=== PATIENT | female | born 1985 | race Caucasian/White ===

== ENCOUNTER 2018-01-16 05:07 | Emergency (ER) | payer OTHER ==
--- NOTE | 2018-01-16 05:39 | EDPHYS ---
Physician Documentation [facility] Name: Fela Martin Age: 32 yrs Sex: Female : 1985 Arrival Date: 01/16/2018 Time: 05:11 Bed 8 Private MD: ED Physician Perez Arnett HPI: 01/16 05:34 This 32 yrs old Female presents to ER via Ambulatory with complaints of Jaw rn Pain. 05:34 The patient presents with pain. The problem is located in the right mandible. Onset: rn The symptoms/episode began/occurred 1.5 month(s) ago. Duration: The symptoms are intermittent. Severity of symptoms: At their worst the symptoms were moderate, in the emergency department the symptoms are unchanged. The patient has not experienced similar symptoms in the past. Reports had multiple wisdom teeth extracted 2 months ago, has been having right mandible/jaw/cheek pain for 1.5 months, no fever, reports tylenol doesn't help, has seen both the surgeon and a dentist, both state everything looks ok, normal pano xrays. No neck pain/swelling, no difficulty swallowing. . [employer]ATIONS SUPPORT [employer]ESSIONALS: 05:39 unknown jd3 Historical: - Allergies: 05:23 No Known Allergies; aa1 - Home Meds: 05:23 Paxil Oral [Active]; Adderall XR Oral [Active]; aa1 - PMHx: 05:23 Endometrosis; Anxiety; Depression; ADD/ADHD; aa1 - PSHx: 05:23 None; aa1 - Immunization history:: Flu vaccine is not up to date. - Social history:: Smoking status: Patient uses tobacco products, smokes one-half pack cigarettes per day. - Family history:: not pertinent. - Hospitalizations: : No recent hospitalization is reported. ROS: 05:34 Constitutional: Negative for fever, chills, and weight loss, Eyes: Negative for injury, rn pain, redness, and discharge, ENT: + jaw pain Neck: Negative for injury, pain, and swelling, Neuro: Negative for headache, weakness, numbness, tingling, and seizure. Exam: 05:34 Constitutional: This is a well developed, well nourished patient who is awake, alert, rn and in no acute distress. Head/Face: Normocephalic, atraumatic. Eyes: Pupils equal round and reactive to light, extra-ocular motions intact. Lids and lashes normal. Conjunctiva and sclera are non-icteric and not injected. Cornea within normal limits. Periorbital areas with no swelling, redness, or edema. ENT: Nares patent. No nasal discharge, no septal abnormalities noted. Tympanic membranes are normal and external auditory canals are clear. Oropharynx with no redness, swelling, or masses, exudates, or evidence of obstruction, uvula midline. Mucous membranes moist. No oral lesions, no evidence of oral infection, no stridor, no masses. Neck: Trachea midline, no thyromegaly or masses palpated, and no cervical lymphadenopathy. Supple, full range of motion without nuchal rigidity, or vertebral point tenderness. No Meningismus. Neuro: Awake and alert, GCS 15, oriented to person, place, time, and situation. Cranial nerves II-XII grossly intact. Motor strength 5/5 in all extremities. Sensory grossly intact. Cerebellar exam normal. Normal gait. Vital Signs: 05:23 BP 124 / 87; Pulse 89; Resp 16; Temp 98.6; Pulse Ox 100% on R/A; Weight 56.25 kg; aa1 Height 5 ft. 4 in. (162.56 cm); Pain 9/10; 05:23 Body Mass Index 21.28 (56.25 kg, 162.56 cm) aa1 MDM: 05:18 Patient medically screened. rn 05:34 Differential diagnosis: dental caries, gingivitis, nerve damage, TMJ dysfunction, pain rn syndrome. Data reviewed: vital signs, nurses notes, and as a result, I will discharge patient. Counseling: I had a detailed discussion with the patient and/or guardian regarding: the need for outpatient follow up, to return to the emergency department if symptoms worsen or persist or if there are any questions or concerns that arise at home. Administered Medications: No medications were administered Disposition: 01/16/18 05:38 Discharged to Home as Medical Screen. Impression: Jaw pain. - Condition is Stable. - Discharge Instructions: Pain Without a Known Cause. - Medication Reconciliation Form, Thank You Letter, Antibiotic Education, Prescription Opioid Use form. - Follow up: Private Physician; When: As needed; Reason: Recheck today's complaints, Re-evaluation by your physician. - Problem is an ongoing problem. - Symptoms are unchanged. Signatures: Noemy Bellamy, RN RN aa1 Perez Arnett MD MD rn Harsh Balbuena RN RN jd3 Corrections: (The following items were deleted from the chart) 05:39 05:38 01/16/2018 05:38 Discharged to Home as Medical Screen. Impression: Jaw pain. jd3 Condition is Stable. Forms are Medication Reconciliation Form, Thank You Letter, Antibiotic Education, Prescription Opioid Use. Follow up: Private Physician; When: As needed; Reason: Recheck today's complaints, Re-evaluation by your physician. Problem is an ongoing problem. Symptoms are unchanged. rn
--- NOTE | 2018-01-16 05:39 | ER ---
Nurse's Notes [facility] Name: Fela Martin Age: 32 yrs Sex: Female : 1985 Arrival Date: 01/16/2018 Time: 05:11 Bed 8 Private MD: Diagnosis: Jaw pain Presentation: 01/16 05:21 Presenting complaint: Patient states: R jaw pain since having wisdom teeth removed 2 aa1 months ago. States she followed up with surgeon regarding pain and was told nothing is wrong but reports she is still having pain. Transition of care: patient was not received from another setting of care. Onset of symptoms was November 12, 2017. Initial Sepsis Screen: Does the patient meet any 2 criteria? No. Patient's initial sepsis screen is negative. Does the patient have a suspected source of infection? No. Patient's initial sepsis screen is negative. Care prior to arrival: None. 05:21 Method Of Arrival: Ambulatory aa1 05:21 Acuity: RAUL 4 aa1 [employer]LLMONG[employer] WORKER: 05:39 unknown jd3 Historical: - Allergies: 05:23 No Known Allergies; aa1 - Home Meds: 05:23 Paxil Oral [Active]; Adderall XR Oral [Active]; aa1 - PMHx: 05:23 Endometrosis; Anxiety; Depression; ADD/ADHD; aa1 - PSHx: 05:23 None; aa1 - Immunization history:: Flu vaccine is not up to date. - Social history:: Smoking status: Patient uses tobacco products, smokes one-half pack cigarettes per day. - Family history:: not pertinent. - Hospitalizations: : No recent hospitalization is reported. Screenin:36 Abuse screen: Denies threats or abuse. Nutritional screening: No deficits noted. jd3 Tuberculosis screening: No symptoms or risk factors identified. Fall Risk None identified. Assessment: 05:34 General: Appears in no apparent distress. Behavior is calm, cooperative, appropriate jd3 for age. Pain: Complains of pain in face. Neuro: Level of Consciousness is awake, alert, obeys commands, Oriented to person, place, time, situation. Cardiovascular: Patient's skin is warm and dry. Respiratory: Airway is patent Respiratory effort is even, unlabored, Respiratory pattern is regular, symmetrical. GI: No signs and/or symptoms were reported involving the gastrointestinal system. : No signs and/or symptoms were reported regarding the genitourinary system. EENT: No signs and/or symptoms were reported regarding the EENT system. Derm: Skin is intact, Skin is dry, Skin is normal, Skin temperature is warm. Musculoskeletal: Circulation, motion, and sensation intact. Range of motion: intact in all extremities. Vital Signs: 05:23 BP 124 / 87; Pulse 89; Resp 16; Temp 98.6; Pulse Ox 100% on R/A; Weight 56.25 kg; aa1 Height 5 ft. 4 in. (162.56 cm); Pain 9/10; 05:23 Body Mass Index 21.28 (56.25 kg, 162.56 cm) aa1 ED Course: 05:11 Patient arrived in ED. al2 05:18 Perez Arnett MD is Attending Physician. rn 05:22 Triage completed. aa1 05:23 Arm band placed on right wrist. Patient placed in an exam room, on a stretcher. aa1 05:36 Patient has correct armband on for positive identification. Placed in gown. jd3 05:36 No provider procedures requiring assistance completed. Patient did not have IV access jd3 during this emergency room visit. 05:38 Harsh Balbuena RN is Primary Nurse. jd3 Administered Medications: No medications were administered Outcome: 05:36 Medical screen evaluation completed per provider. jd3 05:36 Condition: stable 05:36 Discharge instructions given to patient, Instructed on follow up and referral plans. Demonstrated understanding of follow-up care. 05:38 Discharge ordered by . rn 05:39 Patient left the ED. jd3 Signatures: Noemy Bellamy RN RN aa1 Perez Arnett MD MD rn Davies, Jonathon, RN RN Ambika Castro al
== END 2018-01-16 05:39 | disposition home or self-care (01) ==
LOC: ER 05:07
DX: R68.84 Jaw pain (principal); F41.8 Other specified anxiety disorders; F98.8 Other specified behavioral and emotional disorders with onset usually occurring in childhood and adolescence
CPT/HCPCS: 99281

== ENCOUNTER 2018-09-28 08:51 | Emergency (ER) | payer OTHER, SELFPAY ==
--- OUTSIDE RECORDS SUMMARY | 2018-09-28 08:52 | XMS REPORT ---
:1985 [facility] Address [address] [place] [address] Dr. Monk [address] [place] [id number] Care Team Providers Name Role Phone Unavailable Unavailable Unavailable Problems This patient has no known problems. Allergies, Adverse Reactions, Alerts This patient has no known allergies or adverse reactions. Medications This patient has no known medications.
[2018-09-28] MEDS ORDERED: KETOROLAC 30 MG/ML INJ ONE (09:38)
--- NOTE | 2018-09-28 09:39 | EDPHYS ---
Physician Documentation [facility] Name: Fela Martin Age: 33 yrs Sex: Female : 1985 Arrival Date: 09/28/2018 Time: 08:55 Bed 7 Private MD: ED Physician Mg Aranda HPI: 09/28 09:41 This 33 yrs old Female presents to ER via Ambulatory with complaints of Pain tw4 All Over. 09:41 "pain all over" for months. Onset: The symptoms/episode began/occurred 3 month(s) ago. tw4 Severity of symptoms: At their worst the symptoms were moderate in the emergency department the symptoms are unchanged. The patient has not experienced similar symptoms in the past. Historical: - Allergies: 09:04 No Known Allergies; la1 - PMHx: 09:04 ADD/ADHD; Anxiety; Depression; Endometrosis; Hypertension; la1 - Immunization history:: Adult Immunizations up to date. - Social history:: Smoking status: Patient/guardian denies using tobacco. - Ebola Screening: : No symptoms or risks identified at this time. ROS: 09:41 Constitutional: Negative for fever, chills, and weight loss, Eyes: Negative for injury, tw4 pain, redness, and discharge, Cardiovascular: Negative for chest pain, palpitations, and edema, Respiratory: Negative for shortness of breath, cough, wheezing, and pleuritic chest pain, Abdomen/GI: Negative for abdominal pain, nausea, vomiting, diarrhea, and constipation. 09:41 MS/extremity: Positive for pain, of the right arm, left arm, right leg and left leg. Exam: 09:41 Constitutional: This is a well developed, well nourished patient who is awake, alert, tw4 and in no acute distress. Head/Face: Normocephalic, atraumatic. Chest/axilla: Normal chest wall appearance and motion. Nontender with no deformity. No lesions are appreciated. Cardiovascular: Regular rate and rhythm with a normal S1 and S2. No gallops, murmurs, or rubs. Normal PMI, no JVD. No pulse deficits. Respiratory: Lungs have equal breath sounds bilaterally, clear to auscultation and percussion. No rales, rhonchi or wheezes noted. No increased work of breathing, no retractions or nasal flaring. Abdomen/GI: Soft, non-tender, with normal bowel sounds. No distension or tympany. No guarding or rebound. No evidence of tenderness throughout. 09:41 Musculoskeletal/extremity: Extremities: noted in the right jaw, right arm, left arm, right leg and left leg: ROM: no acute changes, Circulation is intact in all extremities. Sensation intact. Vital Signs: 09:04 BP 110 / 80; Pulse 83; Resp 18; Temp 98.8(TE); Pulse Ox 100% on R/A; Weight 58.97 kg; la1 Height 5 ft. 5 in. (165.10 cm); 09:04 Body Mass Index 21.63 (58.97 kg, 165.10 cm) la1 MDM: 09:07 Patient medically screened. tw4 09:41 Data reviewed: vital signs, nurses notes. Data interpreted: Pulse oximetry: tw4 Interpretation: normal. Counseling: I had a detailed discussion with the patient and/or guardian regarding: the historical points, exam findings, and any diagnostic results supporting the discharge/admit diagnosis. Special discussion: I discussed with the patient/guardian in detail that at this point there is no indication for admission to the hospital. It is understood, however, that if the symptoms persist or worsen the patient needs to return immediately for re-evaluation. 11:43 Differential Diagnosis flu, nonspecific viral illness. Medication response: Toradol tw4 partially relieved the patient's pain. Response to treatment: the patient's symptoms have markedly improved after treatment, and as a result, I will discharge patient. Administered Medications: 09:36 Drug: TORadol 60 mg Route: IM; Site: right vastus lateralis; la1 09:54 Follow up: Response: No adverse reaction la1 Disposition: 09/28/18 09:39 Discharged to Home. Impression: Arthralgia of temporomandibular joint, Myalgia. - Condition is Stable. - Discharge Instructions: Musculoskeletal Pain, Muscle Pain, Adult, Pain Without a Known Cause, Temporomandibular Joint Syndrome, Joint Pain, [id number]. - Prescriptions for Tramadol 50 mg Oral Tablet - take 1 tablet by ORAL route every 8 hours as needed; 12 tablet. - Medication Reconciliation Form, Thank You Letter, Antibiotic Education, Prescription Opioid Use form. - Follow up: Private Physician; When: Upon discharge from the Emergency Department; Reason: Recheck today's complaints, Continuance of care. - Problem is new. - Symptoms have improved. Signatures: Edward Palma RN RN la1 Mg Aranda MD MD tw4 Corrections: (The following items were deleted from the chart) 09:55 09:39 09/28/2018 09:39 Discharged to Home. Impression: Arthralgia of temporomandibular la1 joint; Myalgia. Condition is Stable. Forms are Medication Reconciliation Form, Thank You Letter, Antibiotic Education, Prescription Opioid Use. Follow up: Private Physician; When: Upon discharge from the Emergency Department; Reason: Recheck today's complaints, Continuance of care. Problem is new. Symptoms have improved. tw4
--- NOTE | 2018-09-28 09:39 | ER ---
Nurse's Notes [facility] Name: Fela Martin Age: 33 yrs Sex: Female : 1985 Arrival Date: 09/28/2018 Time: 08:55 Bed 7 Private MD: Diagnosis: Arthralgia of temporomandibular joint;Myalgia Presentation: 09/28 09:00 Presenting complaint: Patient states: I have had pain for the last 8 months, worse for la1 the last 3 months. Was seen at [facility] a few weeks ago for the same thing, sent to ENT, ENT stated I needed to follow up with neurology and to get an MRI of my nerves. Pt reports pain in right shoulder, jaw, and cant feel 2 on my fingers and a couple of my toes. It feels like my body is split in half. Transition of care: patient was not received from another setting of care. Onset of symptoms was September 28, 2018. Risk Assessment: Do you want to hurt yourself or someone else? Patient reports no desire to harm self or others. Initial Sepsis Screen: Does the patient meet any 2 criteria? No. Patient's initial sepsis screen is negative. Does the patient have a suspected source of infection? No. Patient's initial sepsis screen is negative. Care prior to arrival: None. 09:00 Method Of Arrival: Ambulatory la1 09:00 Acuity: RAUL 3 la1 Historical: - Allergies: 09:04 No Known Allergies; la1 - PMHx: 09:04 ADD/ADHD; Anxiety; Depression; Endometrosis; Hypertension; la1 - Immunization history:: Adult Immunizations up to date. - Social history:: Smoking status: Patient/guardian denies using tobacco. - Ebola Screening: : No symptoms or risks identified at this time. Screenin:13 Abuse screen: Denies threats or abuse. Nutritional screening: No deficits noted. la1 Tuberculosis screening: No symptoms or risk factors identified. Fall Risk None identified. Assessment: 09:12 General: Appears in no apparent distress. Behavior is calm, cooperative. Pain: la1 Complains of pain in right hand, right foot, right arm, right leg and neck. Neuro: Level of Consciousness is awake, alert, obeys commands, Oriented to person, place, time, situation, Telesales Representative are equal bilaterally Moves all extremities. Full function Gait is steady, Speech is normal, Facial symmetry appears normal, Pupils are PERRLA, Intact. Cardiovascular: Capillary refill < 3 seconds Patient's skin is warm and dry. Respiratory: Airway is patent Respiratory effort is even, unlabored, Respiratory pattern is regular, symmetrical, Breath sounds are clear bilaterally. GI: No signs and/or symptoms were reported involving the gastrointestinal system. : No signs and/or symptoms were reported regarding the genitourinary system. Musculoskeletal: Circulation, motion, and sensation intact. Capillary refill < 3 seconds, is brisk, in bilateral fingers. Range of motion: intact in all extremities. Vital Signs: 09:04 BP 110 / 80; Pulse 83; Resp 18; Temp 98.8(TE); Pulse Ox 100% on R/A; Weight 58.97 kg; la1 Height 5 ft. 5 in. (165.10 cm); 09:04 Body Mass Index 21.63 (58.97 kg, 165.10 cm) la1 ED Course: 08:55 Patient arrived in ED. mr 09:03 Triage completed. la1 09:04 Arm band placed on right wrist. la1 09:07 Mg Aranda MD is Attending Physician. tw4 09:12 Edward Palma RN is Primary Nurse. la1 09:13 Call light in reach. Side rails up X 1. la1 09:54 No provider procedures requiring assistance completed. Patient did not have IV access la1 during this emergency room visit. Administered Medications: 09:36 Drug: TORadol 60 mg Route: IM; Site: right vastus lateralis; la1 09:54 Follow up: Response: No adverse reaction la1 Outcome: 09:39 Discharge ordered by . tw4 09:54 Discharged to home ambulatory. la1 09:54 Condition: stable 09:54 Discharge instructions given to patient, Instructed on discharge instructions, follow up and referral plans. medication usage, Demonstrated understanding of instructions, follow-up care, medications, Prescriptions given X 1. 09:55 Patient left the ED. la1 Signatures: Syed Ruth sharp Edward Palma, RN RN la1 Mg Aranda MD MD tw4
== END 2018-09-28 09:55 | disposition home or self-care (01) ==
LOC: ER 08:51
DX: M26.629 Arthralgia of temporomandibular joint, unspecified side (principal); I10 Essential (primary) hypertension

== ENCOUNTER 2018-10-11 22:31 | Emergency (ER) | payer SELFPAY ==
--- OUTSIDE RECORDS SUMMARY | 2018-10-11 22:34 | XMS REPORT | Continuity of Care Document ---
:1985 Author Organization Interface Problems Problem Status Onset Date Classification Date Comments Source Reported Medications Medication Details Route Status Patient Ordering Order Source Instructions Provider Date Allergies, Adverse Reactions, Alerts Substance Category Reaction Severity Reaction Status Date Comments Source type Reported Immunizations Immunization Date Given Site Status Last Updated Comments Source Results Order Results Value Reference Date Interpretation Comments Source Name Range Vital Signs Vital Sign Value Date Comments Source Encounters Location Location Encounter Encounter Reason Attending ADM DC Status Source Details Type Number For Provider Date Date Visit Outpatient [id number] JENNIE 10/08 [facility] [id number] JENNIE 11/05 [place] [id number] Dom Procedures Procedure Code Date Perfomer Comments Source
--- OUTSIDE RECORDS SUMMARY | 2018-10-11 22:34 | XMS REPORT ---
:1985 Author Organization [facility] Address [address] [place] [address] Dr. Monk [address] [place] [id number] Care Team Providers Name Role Phone Unavailable Unavailable Unavailable Problems This patient has no known problems. Allergies, Adverse Reactions, Alerts This patient has no known allergies or adverse reactions. Medications This patient has no known medications.
[2018-10-11 23:22] LABS: Absolute Lymphocytes (CBC) 5.1 K/uL (0.7-4.9); Absolute Monocytes 0.6 K/uL (0.1-1.3); Absolute Neutrophil 2.6 K/uL (1.8-8.0); Basophils % 0.3 % (0-1.3); Eosinophils % 3.2 % (0-4.4); Hematocrit 36.5 % (36.0-45.0); Monocytes % 7.5 % (3.3-12.3); RBC Red Blood Cell Count 4.26 M/uL (3.86-4.86)
[2018-10-11 23:42] LABS: ALT/SGPT 16 U/L (12-78); AST/SGOT 4 U/L (15-37); Alkaline Phosphatase 74 U/L (45-117); BUN Blood Urea Nitrogen 9 mg/dL (7-18); Bicarbonate 26 mmol/L (21-32); Bilirubin Direct 0.1 mg/dL (0-0.2); Bilirubin Total 0.3 mg/dL (0.2-1.0); Glucose Level 95 mg/dL (74-106); Lipase 153 U/L (73-393); Potassium 3.6 mmol/L (3.5-5.1); Protein, Total 7.2 g/dL (6.4-8.2); Sodium Level 139 mmol/L (136-145)
[2018-10-11] MEDS ORDERED: KETOROLAC 30 MG/ML INJ ONE (23:45)
--- NOTE | 2018-10-12 02:27 | ER ---
Nurse's Notes [facility] Name: Fela Martin Age: 33 yrs Sex: Female : 1985 Arrival Date: 10/11/2018 Time: 22:33 Bed 7 Private MD: Raudel Beck Diagnosis: Neuralgia and neuritis, unspecified;Chest pain, unspecified-Chest wall pain Presentation: 10/11 22:50 Presenting complaint: Patient states: Pt reports pain to right upper quadrant that ea worsens when she takes a deep breath, reports pain started about 4 hours ago and has worsened since. Transition of care: patient was not received from another setting of care. Onset of symptoms was October 11, 2018. Risk Assessment: Do you want to hurt yourself or someone else? Patient reports no desire to harm self or others. Initial Sepsis Screen: Does the patient meet any 2 criteria? No. Patient's initial sepsis screen is negative. Does the patient have a suspected source of infection? No. Patient's initial sepsis screen is negative. Care prior to arrival: None. 22:50 Acuity: RAUL 3 ea 22:50 Method Of Arrival: Wheelchair ea Triage Assessment: 22:50 General: Appears uncomfortable, Behavior is calm, cooperative, appropriate for age. ea Pain: Complains of pain in abdomen and right upper quadrant. Neuro: Level of Consciousness is awake, alert, obeys commands, Oriented to person, place, time, situation. Respiratory: Reports pain with respiration Airway is patent Respiratory effort is even, unlabored, Respiratory pattern is regular, symmetrical, Onset: The symptoms/episode began/occurred today, the patient reports symptoms have resolved. Derm: Skin is pink, warm \T\ dry. Historical: - Allergies: 23:05 No Known Allergies; ea - Home Meds: 23:05 Paxil Oral [Active]; Adderall XR Oral [Active]; ea - PMHx: 23:05 ADD/ADHD; Anxiety; Depression; Endometrosis; Hypertension; ea - Immunization history:: Adult Immunizations not up to date. - Social history:: Smoking status: Patient uses tobacco products, denies chronic smoking, but will smoke occasionally. - Ebola Screening: : No symptoms or risks identified at this time. Screenin:52 Abuse screen: Denies threats or abuse. Nutritional screening: No deficits noted. ea Tuberculosis screening: No symptoms or risk factors identified. Fall Risk None identified. Assessment: 22:50 General: Appears uncomfortable, Behavior is appropriate for age. Pain: Complains of ea pain in right upper quadrant Pain currently is 9 out of 10 on a pain scale. Quality of pain is described as aching, Aggravated by pain with inspiration. Neuro: Level of Consciousness is awake, alert, obeys commands, Oriented to person, place, time, situation. Cardiovascular: Patient's skin is warm and dry. Respiratory: Airway is patent Respiratory effort is even, unlabored, Respiratory pattern is regular, symmetrical, Breath sounds are clear bilaterally. GI: No signs and/or symptoms were reported involving the gastrointestinal system. Derm: Skin is pink, warm \T\ dry. 23:55 Reassessment: Patient and/or family updated on plan of care and expected duration. Pain ea level reassessed. Patient is alert, oriented x 3, equal unlabored respirations, skin warm/dry/pink. Pt reports pain level is decreased. 10/12 00:30 Reassessment: Patient and/or family updated on plan of care and expected duration. Pain ea level reassessed. Patient is alert, oriented x 3, equal unlabored respirations, skin warm/dry/pink. 01:34 Reassessment: Patient and/or family updated on plan of care and expected duration. Pain ea level reassessed. Patient is alert, oriented x 3, equal unlabored respirations, skin warm/dry/pink. Provider at bedside updating pt on plan of care. 02:07 Reassessment: Patient and/or family updated on plan of care and expected duration. Pain ea level reassessed. Patient is alert, oriented x 3, equal unlabored respirations, skin warm/dry/pink. Pt returned from CT. 02:39 Reassessment: Patient and/or family updated on plan of care and expected duration. Pain ea level reassessed. Patient is alert, oriented x 3, equal unlabored respirations, skin warm/dry/pink. Discharge instruction given to patient, verbalized the understanding of instruction. Vital Signs: 10/11 22:50 BP 146 / 88; Pulse 89; Resp 18; Temp 98(O); Pulse Ox 99% on R/A; ea 10/12 00:00 BP 120 / 74; Pulse 78; Resp 18; Pulse Ox 98% on R/A; ea 02:15 BP 121 / 93; Pulse 70; Resp 18; Pulse Ox 99% ; ea ED Course: 10/11 22:33 Patient arrived in ED. am2 22:34 Raudel Beck MD is Private Physician. am2 22:44 Connor Craig PA is PHCP. jr8 22:44 Arian Rodriguez MD is Attending Physician. jr8 22:47 Arm band placed on left wrist. Patient placed in an exam room, on a stretcher, on pulse ea oximetry. 22:50 Lisa Mariee, RN is Primary Nurse. ea 22:50 Patient has correct armband on for positive identification. Bed in low position. Call ea light in reach. 23:12 Triage completed. ea 23:17 Inserted saline lock: 22 gauge in right antecubital area, using aseptic technique. ea Blood collected. 10/12 00:52 IV discontinued, intact, bleeding controlled, No redness/swelling at site. Pressure ea dressing applied, 22G to RAC discontinued due to pain to site. Inserted saline lock: 22 gauge in left forearm, using aseptic technique. 01:[address] via wheelchair. kw1 01:57 CT Abd/Pelvis - W/Contrast In Process Unspecified. EDMS 02:42 No provider procedures requiring assistance completed. IV discontinued, intact, ea bleeding controlled, No redness/swelling at site. Pressure dressing applied. Administered Medications: 10/11 23:42 Drug: TORadol 30 mg Route: IVP; Site: right antecubital; ea 10/12 00:11 Follow up: Response: No adverse reaction; Pain is decreased ea Outcome: 02:26 Discharge ordered by . jr8 02:41 Discharged to home ambulatory, with friend. ea 02:41 Condition: improved 02:41 Discharge instructions given to patient, Instructed on discharge instructions, follow up and referral plans. medication usage, Demonstrated understanding of instructions, follow-up care, medications, Prescriptions given X 2. 02:42 Patient left the ED. ea Signatures: Dispatcher [employer] EDMS Connor Craig PA PA jr8 Peggy Phillips am2 Lisa Mariee, Ghada Braxton RN, ea kw1
--- NOTE | 2018-10-12 02:27 | EDPHYS ---
Physician Documentation [facility] Name: Fela Martin Age: 33 yrs Sex: Female : 1985 Arrival Date: 10/11/2018 Time: 22:33 Bed 7 Private MD: Raudel Beck ED Physician Arian Rodriguez HPI: 10/11 23:04 This 33 yrs old Female presents to ER via Unassigned with complaints of jr8 Breathing Difficulty, Cough, sharp pain when breathing. 23:04 Onset: The symptoms/episode began/occurred acutely, today. The patient's shortness of jr8 breath has no apparent modifying factors. Associated signs and symptoms: The patient has no apparent associated signs or symptoms. Severity of symptoms: At their worst the symptoms were mild in the emergency department the symptoms are unchanged. The patient has not experienced similar symptoms in the past. The patient has not recently seen a physician. Historical: - Allergies: 23:05 No Known Allergies; ea - Home Meds: 23:05 Paxil Oral [Active]; Adderall XR Oral [Active]; ea - PMHx: 23:05 ADD/ADHD; Anxiety; Depression; Endometrosis; Hypertension; ea - Immunization history:: Adult Immunizations not up to date. - Social history:: Smoking status: Patient uses tobacco products, denies chronic smoking, but will smoke occasionally. - Ebola Screening: : No symptoms or risks identified at this time. ROS: 23:04 Eyes: Negative for injury, pain, redness, and discharge, ENT: Negative for injury, jr8 pain, and discharge, Neck: Negative for injury, pain, and swelling, Cardiovascular: Negative for palpitations, and edema. Positive for chest wall pain Abdomen/GI: Negative for abdominal pain, nausea, vomiting, diarrhea, and constipation, Back: Negative for injury and pain, MS/Extremity: Negative for injury and deformity, Skin: Negative for injury, rash, and discoloration, Neuro: Negative for headache, weakness, numbness, tingling, and seizure. 23:04 Respiratory: Positive for shortness of breath, Negative for cough, dyspnea on exertion, sputum production, wheezing. Exam: 23:04 Head/Face: Normocephalic, atraumatic. Eyes: Pupils equal round and reactive to light, jr8 extra-ocular motions intact. Lids and lashes normal. Conjunctiva and sclera are non-icteric and not injected. Cornea within normal limits. Periorbital areas with no swelling, redness, or edema. ENT: Nares patent. No nasal discharge, no septal abnormalities noted. Tympanic membranes are normal and external auditory canals are clear. Oropharynx with no redness, swelling, or masses, exudates, or evidence of obstruction, uvula midline. Mucous membranes moist. Neck: Trachea midline, no thyromegaly or masses palpated, and no cervical lymphadenopathy. Supple, full range of motion without nuchal rigidity, or vertebral point tenderness. No Meningismus. Cardiovascular: Regular rate and rhythm with a normal S1 and S2. No gallops, murmurs, or rubs. Normal PMI, no JVD. No pulse deficits. Respiratory: Lungs have equal breath sounds bilaterally, clear to auscultation and percussion. No rales, rhonchi or wheezes noted. No increased work of breathing, no retractions or nasal flaring. Back: No spinal tenderness. No costovertebral tenderness. Full range of motion. Skin: Warm, dry with normal turgor. Normal color with no rashes, no lesions, and no evidence of cellulitis. MS/ Extremity: Pulses equal, no cyanosis. Neurovascular intact. Full, normal range of motion. Neuro: Awake and alert, GCS 15, oriented to person, place, time, and situation. Cranial nerves II-XII grossly intact. Motor strength 5/5 in all extremities. Sensory grossly intact. Cerebellar exam normal. Normal gait. 23:04 Chest/axilla: Inspection: normal, Palpation: tenderness, that is mild, of the right lower anterior ribs, that partially reproduces the patient's complaints. 23:04 Abdomen/GI: Inspection: abdomen appears normal, Bowel sounds: active, all quadrants, Palpation: soft, in all quadrants, mild abdominal tenderness, in the right upper quadrant, mass, is not appreciated, rebound tenderness, is not appreciated, voluntary guarding, is not appreciated, involuntary guarding, is not appreciated, no appreciated organomegaly, Indicators: McBurney's point is not tender, Cochran's sign is negative, Rovsing's sign is negative, Liver: tenderness, is not appreciated. Vital Signs: 22:50 BP 146 / 88; Pulse 89; Resp 18; Temp 98(O); Pulse Ox 99% on R/A; ea 10/12 00:00 BP 120 / 74; Pulse 78; Resp 18; Pulse Ox 98% on R/A; ea 02:15 BP 121 / 93; Pulse 70; Resp 18; Pulse Ox 99% ; ea MDM: 10/11 22:44 Patient medically screened. [facility] 10/12 02:25 Data reviewed: vital signs, nurses notes, lab test result(s), radiologic studies, CT jr8 scan, and as a result, I will discharge patient. Data interpreted: Pulse oximetry: on room air is 99 %. Interpretation: normal. Counseling: I had a detailed discussion with the patient and/or guardian regarding: the historical points, exam findings, and any diagnostic results supporting the discharge/admit diagnosis, lab results, radiology results, the need for outpatient follow up, a neurologist, to return to the emergency department if symptoms worsen or persist or if there are any questions or concerns that arise at home. Response to treatment: the patient's symptoms have mildly improved after treatment. Special discussion: Based on the patient's Hx, exam, and Dx evaluation, there is no indication for emergent surgery or inpatient Tx. It is understood by the patient/guardian that if the Sx's persist or worsen they need to return immediately for re-evaluation. 10/11 23:03 Order name: Basic Metabolic Panel; Complete Time: 23:45 8 10/11 23:03 Order name: CBC with Diff; Complete Time: 23:36 8 10/11 23:03 Order name: Creatinine for Radiology; Complete Time: 23:40 8 10/11 23:03 Order name: Hepatic Function; Complete Time: 23:45 jr8 10/11 23:03 Order name: Lipase; Complete Time: 23:45 8 10/11 23:41 Order name: CT Abd/Pelvis - W/Contrast [facility] 10/11 23:03 Order name: IV Saline Lock; Complete Time: 23:21 8 10/11 23:03 Order name: Labs collected and sent; Complete Time: 23:21 jr Administered Medications: 10/11 23:42 Drug: TORadol 30 mg Route: IVP; Site: right antecubital; ea 10/12 00:11 Follow up: Response: No adverse reaction; Pain is decreased ea Disposition: 20:19 Co-signature as Attending Physician, Arian Rodriguez MD. Disposition: 10/12/18 02:26 Discharged to Home. Impression: Neuralgia and neuritis, unspecified, Chest pain, unspecified - Chest wall pain. - Condition is Stable. - Discharge Instructions: Nonspecific Chest Pain, Chest Wall Pain, Neuropathic Pain. - Prescriptions for Mobic 7.5 mg Oral Tablet - take 1 tablet by ORAL route once daily take with food; 20 tablet. Robaxin 500 mg Oral Tablet - take 2 tablet by ORAL route every 6 hours As needed; 40 tablet. - Medication Reconciliation Form, Thank You Letter, Antibiotic Education, Prescription Opioid Use form. - Follow up: Private Physician; When: 5 - 6 days; Reason: Recheck today's complaints, Continuance of care, Re-evaluation by your physician. - Problem is new. - Symptoms have improved. Signatures: Dispatcher [employer] EDMS Connor Craig PA PA jr8 Lisa Mariee RN RN ea Starr, Gregory, MD MD Corrections: (The following items were deleted from the chart) 02:42 02:26 10/12/2018 02:26 Discharged to Home. Impression: Neuralgia and neuritis, ea unspecified; Chest pain, unspecified - Chest wall pain. Condition is Stable. Forms are Medication Reconciliation Form, Thank You Letter, Antibiotic Education, Prescription Opioid Use. Follow up: Private Physician; When: 5 - 6 days; Reason: Recheck today's complaints, Continuance of care, Re-evaluation by your physician. Problem is new. Symptoms have improved. jr8
--- NOTE | 2018-10-13 12:54 | RAD REPORT ---
EXAM DESCRIPTION: CT Abdomen and Pelvis With Intravenous Contrast CLINICAL HISTORY: The patient is 33 years old and is Female: Iv only Abd pain COMPARISON: No relevant prior studies available. TECHNIQUE: Axial computed tomography images of the abdomen and pelvis with intravenous contrast. Sagittal and co emma reformatted images were created and reviewed. This CT exam was performed using one or more of t he following dose reduction techniques: Automated exposure control, adjustment of the mA and/or kV ac cording to patient size, and/or use of iterative reconstruction technique. FINDINGS: Lung bases: A 5 mm groundglass nodule within the left lower lobe is present. ABDOMEN: Liver: Unremarkable. No mass. Gallbladder and bile ducts: No calcified stones. No ductal dilation. Pancreas: No ductal dilation. No mass. Spleen: Unremarkable. Adrenals: Unremarkable. No mass. Kidneys and ureters: Unremarkable. No solid mass. No hydronephrosis. Stomach and bowl: The stomach is minimally fluid-filled. The small bowel is relatively normal in shruthi dany. Stool is present throughout the colon. There is no mucosal thickening or evidence of bowel obstr uction. PELVIS: Appendix: The appendix is normal in caliber without surrounding inflammation. Bladder: The bladder is not well distended. Reproductive: Unremarkable as visualized. ABDOMEN and PELVIS: Intraperitoneal space: Trace free fluid is present within the pelvis which is likely physiologic. No free air. Bones/Joints: No acute fracture. Soft tissues: The soft tissues are normal. Vasculature: Unremarkable. No abdominal aortic aneurysm. Lymph nodes: Unremarkable. No enlarged lymph nodes. IMPRESSION: 1. No acute findings on this contrasted CAT of the abdomen and pelvis to explain the pat ient's symptoms. 2. Incidental left lower lobe pulmonary nodule. ACR White Paper guidelines (MacMahon, et al. Radiolog y 2017; 284(1);228-43) suggest that no follow-up is necessary. Electronically signed by: Renetta North MD 10/12/2018 2:04 AM [employer] Due to temporary technical issues with the PACS/Fluency reporting system, reports are being signed by the in house radiologist as a courtesy to ensure prompt reporting. The interpreting radiologist is f ully responsible for the content of the report.
== END 2018-10-12 02:42 | disposition home or self-care (01) ==
LOC: ER 22:31
DX: M79.2 Neuralgia and neuritis, unspecified (principal); I10 Essential (primary) hypertension; F32.9 Major depressive disorder, single episode, unspecified; F90.9 Attention-deficit hyperactivity disorder, unspecified type; Z72.0 Tobacco use
CPT/HCPCS: 36415; 74177; 80048; 80076; 83690; 85025; 96374; 99284; Q9967

== ENCOUNTER 2019-06-04 15:22 | Emergency (ER) | payer OTHER, SELFPAY ==
[2019-06-04 16:11] LABS: Urine Bacteria 20-50 /HPF (<20); Urine RBC <5 /HPF (NONE SEEN)
[2019-06-04 16:12] LABS: Urine Culture Reflex Order NOT NEEDED; Urine Mucus 1+ /HPF (NONE SEEN)
[2019-06-04 16:13] LABS: Urine Blood NEGATIVE (NEG); Urine Glucose NEGATIVE (NEG); Urine Protein NEGATIVE (NEG)
--- NOTE | 2019-06-04 16:59 | EDPHYS ---
Physician Documentation [facility] Name: Fela Martin Age: 33 yrs Sex: Female : 1985 Arrival Date: 06/04/2019 Time: 15:24 Bed 24 Private MD: ED Physician Arian Rodriguez HPI: 06/04 17:07 This 33 yrs old Female presents to ER via Ambulatory with complaints of Low snw Back Pain. 17:07 The patient presents with pain that is acute, that is chronic. The symptoms are located snw in the low back. Location: left low back. The problem was sustained from unknown cause. Onset: The symptoms/episode began/occurred 3 day(s) ago, and became worse. Modifying factors: The patient symptoms are alleviated by nothing, the patient symptoms are aggravated by any movement. Associated signs and symptoms: Pertinent positives: malaise, fatigue, frequency. Severity of symptoms: At their worst the symptoms were moderate. It is unknown whether or not the patient has had similar symptoms in the past. It is unknown whether or not the patient has recently seen a physician. Historical: - Allergies: 15:46 No Known Allergies; sg - PMHx: 15:46 ADD/ADHD; Anxiety; Depression; Endometrosis; Hypertension; sg - Immunization history:: Adult Immunizations not up to date. - Social history:: Smoking status: Patient/guardian denies using tobacco. - Ebola Screening: : Patient negative for fever greater than or equal to 101.5 degrees Fahrenheit, and additional compatible Ebola Virus Disease symptoms Patient denies exposure to infectious person Patient denies travel to an Ebola-affected area in the 21 days before illness onset No symptoms or risks identified at this time. ROS: 17:03 Constitutional: Negative for fever, chills, and weight loss, Eyes: Negative for injury, snw pain, redness, and discharge, ENT: Negative for injury, pain, and discharge, Neck: Negative for injury, pain, and swelling, Cardiovascular: Negative for chest pain, palpitations, and edema, Respiratory: Negative for shortness of breath, cough, wheezing, and pleuritic chest pain, Abdomen/GI: Negative for abdominal pain, nausea, vomiting, diarrhea, and constipation, Back: Negative for injury. positive electric shock like pains to left hip, hx of dystonia. Pt sees Neurology for tx of dystonia and migraines : Negative for injury, bleeding, discharge, and swelling, MS/Extremity: Negative for injury and deformity, Skin: Negative for injury, rash, and discoloration, Neuro: Negative for headache, weakness, numbness, tingling, and seizure. Exam: 17:02 Constitutional: This is a well developed, well nourished patient who is awake, alert, snw and in no acute distress. Eyes: Pupils equal round and reactive to light, extra-ocular motions intact. Lids and lashes normal. Conjunctiva and sclera are non-icteric and not injected. Cornea within normal limits. Periorbital areas with no swelling, redness, or edema. ENT: Nares patent. No nasal discharge, no septal abnormalities noted. Tympanic membranes are normal and external auditory canals are clear. Oropharynx with no redness, swelling, or masses, exudates, or evidence of obstruction, uvula midline. Mucous membranes moist. Neck: Trachea midline, no thyromegaly or masses palpated, and no cervical lymphadenopathy. Supple, full range of motion without nuchal rigidity, or vertebral point tenderness. No Meningismus. Chest/axilla: Normal chest wall appearance and motion. Nontender with no deformity. No lesions are appreciated. Cardiovascular: Regular rate and rhythm with a normal S1 and S2. No gallops, murmurs, or rubs. Normal PMI, no JVD. No pulse deficits. Respiratory: Lungs have equal breath sounds bilaterally, clear to auscultation and percussion. No rales, rhonchi or wheezes noted. No increased work of breathing, no retractions or nasal flaring. Abdomen/GI: Soft, non-tender, with normal bowel sounds. No distension or tympany. No guarding or rebound. No evidence of tenderness throughout. Back: No spinal tenderness. No costovertebral tenderness. Full range of motion. Skin: Warm, dry with normal turgor. Normal color with no rashes, no lesions, and no evidence of cellulitis. MS/ Extremity: Pulses equal, no cyanosis. Neurovascular intact. Full, normal range of motion. Neuro: Awake and alert, GCS 15, oriented to person, place, time, and situation. Cranial nerves II-XII grossly intact. Motor strength 5/5 in all extremities. Sensory grossly intact. Cerebellar exam normal. Normal gait. Psych: Awake, alert, with orientation to person, place and time. Behavior, mood, and affect are within normal limits. Vital Signs: 15:46 BP 110 / 73; Pulse 79; Resp 16; Temp 98.3; Pulse Ox 100% ; lt1 17:00 BP 101 / 67; Pulse 67; Resp 16; Pulse Ox 100% on R/A; tr5 MDM: 15:44 Patient medically screened. snw 17:06 Data reviewed: vital signs, nurses notes. Data interpreted: Pulse oximetry: on room air snw is 100 %. Interpretation: normal. Counseling: I had a detailed discussion with the patient and/or guardian regarding: the historical points, exam findings, and any diagnostic results supporting the discharge/admit diagnosis, lab results, the need for outpatient follow up, to return to the emergency department if symptoms worsen or persist or if there are any questions or concerns that arise at home. Special discussion: Based on the history and exam findings, there is no indication for further emergent testing or inpatient evaluation. I discussed with the patient/guardian the need to see the neurologist for further evaluation of the symptoms. I discussed with the patient/guardian the need to see the primary care provider for further evaluation of the symptoms. 06/04 15:32 Order name: Urine Culture snw 06/04 15:32 Order name: Urine Microscopic Only; Complete Time: 16:41 snw 06/04 15:32 Order name: Urine Test (obtain specimen); Complete Time: 15:56 snw 06/04 15:57 Order name: Urine Dipstick--Ancillary (enter results); Complete Time: 16:41 eb 06/04 15:57 Order name: Urine --Ancillary (enter results); Complete Time: 16:41 eb 06/04 15:32 Order name: Urine Dipstick-Ancillary (obtain specimen); Complete Time: 15:56 snw Administered Medications: 17:27 Drug: TORadol 30 mg Route: IM; Site: right ventrogluteal; tr5 17:27 Follow up: Response: Medication administered at discharge. tr5 Disposition: 06/04/19 16:58 Discharged to Home. Impression: Urinary tract infection, site not specified, Sciatica, left side. - Condition is Stable. - Discharge Instructions: Sciatica, Urinary Tract Infection, Adult, Cryotherapy, Rehydration, Adult, Heat Therapy, Radicular Pain. - Prescriptions for Ultram 50 mg Oral Tablet - take 1 tablet by ORAL route every 6 hours As needed; 12 tablet. Macrobid 100 mg Oral Capsule - take 1 capsule by ORAL route every 12 hours for 10 days; 20 capsule. - Medication Reconciliation Form, Thank You Letter, Antibiotic Education, Prescription Opioid Use form. - Follow up: Private Physician; When: 2 - 3 days; Reason: Recheck today's complaints, Continuance of care, Re-evaluation by your physician. Follow up: Emergency Department; When: As needed; Reason: Worsening of condition. Addendum: 06/09/2019 14:39 Co-signature as Attending Physician, Arian Rodriguez MD. g s Signatures: Dispatcher [employer] EDMS Edilberto Falcon, RN RN sg Ale Castro, [employer]-C B[employer]-Csnw Arian Rodriguez MD MD gs Rodriguez, Tommie RN RN tr5 Corrections: (The following items were deleted from the chart) 06/04 17:33 16:58 06/04/2019 16:58 Discharged to Home. Impression: Urinary tract infection, site tr5 not specified; Sciatica, left side. Condition is Stable. Forms are Medication Reconciliation Form, Thank You Letter, Antibiotic Education, Prescription Opioid Use. Follow up: Private Physician; When: 2 - 3 days; Reason: Recheck today's complaints, Continuance of care, Re-evaluation by your physician. Follow up: Emergency Department; When: As needed; Reason: Worsening of condition. snw
--- NOTE | 2019-06-04 16:59 | ER ---
Nurse's Notes [facility] Name: Fela Martin Age: 33 yrs Sex: Female : 1985 Arrival Date: 06/04/2019 Time: 15:24 Bed 24 Private MD: Diagnosis: Urinary tract infection, site not specified;Sciatica, left side Presentation: 06/04 15:45 Presenting complaint: Patient states: Lower back pain for several days, reports not sg feeling well today, denies Fever/Vomiting, reports nausea that comes and goes, denies any other urinary symptoms at this time. Transition of care: patient was not received from another setting of care. Onset of symptoms was June 04, 2019. Risk Assessment: Do you want to hurt yourself or someone else? Patient reports no desire to harm self or others. Initial Sepsis Screen: Does the patient meet any 2 criteria? No. Patient's initial sepsis screen is negative. Does the patient have a suspected source of infection? No. Patient's initial sepsis screen is negative. Care prior to arrival: None. 15:45 Method Of Arrival: Ambulatory sg 15:45 Acuity: RAUL 3 sg Historical: - Allergies: 15:46 No Known Allergies; sg - PMHx: 15:46 ADD/ADHD; Anxiety; Depression; Endometrosis; Hypertension; sg - Immunization history:: Adult Immunizations not up to date. - Social history:: Smoking status: Patient/guardian denies using tobacco. - Ebola Screening: : Patient negative for fever greater than or equal to 101.5 degrees Fahrenheit, and additional compatible Ebola Virus Disease symptoms Patient denies exposure to infectious person Patient denies travel to an Ebola-affected area in the 21 days before illness onset No symptoms or risks identified at this time. Screenin:00 Abuse screen: Denies threats or abuse. Nutritional screening: No deficits noted. tr5 Tuberculosis screening: No symptoms or risk factors identified. Fall Risk None identified. Assessment: 17:15 General: Appears uncomfortable, Behavior is calm, cooperative. Pain: Complains of pain tr5 in left low back and right low back Pain does not radiate. Pain currently is 7 out of 10 on a pain scale. Quality of pain is described as sharp, Pain began gradually. 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 Cardiovascular: Heart tones present Capillary refill < 3 seconds Pulses are all present. Edema is absent. Respiratory: Airway is patent Respiratory effort is even, unlabored. GI: Reports nausea. : No signs and/or symptoms were reported regarding the genitourinary system. EENT: No signs and/or symptoms were reported regarding the EENT system. Derm: No signs and/or symptoms reported regarding the dermatologic system. Musculoskeletal: Capillary refill < 3 seconds, Range of motion: intact in all extremities. Vital Signs: 15:46 BP 110 / 73; Pulse 79; Resp 16; Temp 98.3; Pulse Ox 100% ; lt1 17:00 BP 101 / 67; Pulse 67; Resp 16; Pulse Ox 100% on R/A; tr5 ED Course: 15:24 Patient arrived in ED. as 15:31 Ale Castro FNP-C is [facility]. snw 15:31 Arian Rodriguez MD is Attending Physician. snw 15:46 Triage completed. sg 15:47 Edilberto Falcon RN is Primary Nurse. sg 15:47 Arm band placed on. sg 15:56 Urine collected: clean catch specimen, clear. lt1 15:56 Urine Microscopic Only Sent. lt1 15:56 Urine Culture Sent. lt1 17:00 Bed in low position. Call light in reach. Side rails up X 1. tr5 17:28 No provider procedures requiring assistance completed. Patient did not have IV access tr5 during this emergency room visit. Administered Medications: 17:27 Drug: TORadol 30 mg Route: IM; Site: right ventrogluteal; tr5 17:27 Follow up: Response: Medication administered at discharge. tr5 Outcome: 16:58 Discharge ordered by . snw 17:28 Discharged to home ambulatory. tr5 17:28 Condition: stable 17:28 Discharge instructions given to patient, Instructed on discharge instructions, follow up and referral plans. medication usage. 17:33 Patient left the ED. tr5 Signatures: Eidlberto Falcon, RN J LUIS Ale Castro FNP-C FNP-Jessica Robles Leah lt1 Pavan Feng RN RN tr5
[2019-06-04] MEDS ORDERED: KETOROLAC 30 MG/ML INJ ONE (17:21)
[2019-06-04 17:55] VITALS: TEMP 98.3; O2SAT 100
[2019-06-04 17:56] VITALS: BP 101/67
== END 2019-06-04 17:33 | disposition home or self-care (01) ==
LOC: ER 15:22
DX: N39.0 Urinary tract infection, site not specified (principal)
CPT/HCPCS: 81003; 81015; 81025; 87086; 87088; 96372; 99283

== ENCOUNTER 2020-10-06 21:44 | Emergency (ER) | payer OTHER ==
--- OUTSIDE RECORDS SUMMARY | 2020-10-06 21:47 | XMS REPORT | Summary of Care ---
:1985 Author Organization [facility] Neurology [place] Address [address] [place] [address]- phone Encounter HQ Denisha_aida(FIN) [id number] Date(s): 09/19/20 - 09/19/[address] [address]- [phone] Attending Physician: Tres Adkins MD Vital Signs No data available for this section Problem List Condition Effective Dates Status Health Status Informant Cervicogenic headache(Confirmed) Active Chest pain(Confirmed) Active Depression(Confirmed) Active Dystonia(Confirmed) Active Hyperlipidemia(Confirmed) Active Lumbar radiculopathy(Confirmed) Active Fasciculation(Confirmed) Active Neck pain(Confirmed) Active Heart palpitations(Confirmed) Active Paresthesia(Confirmed) Active PTSD (post-traumatic stress Active disorder)(Confirmed) Sacroiliac pain(Confirmed) Active TMJPDS (temporomandibular joint pain Active dysfunction syndrome)(Confirmed) Allergies, Adverse Reactions, Alerts No Known Medication Allergies Medications trihexyphenidyl 2 mg oral tablet 2 mg = 1 tab, PO, TID, # 90 tab, 3 Refill(s), Pharmacy: [facility], 165.1, cm, 01/27/20 10:33:00 CDT, Height, 63.636, kg, 01/27/20 10:33:00 CDT, Weight Start Date: 08/30/20 Stop Date: 12/28/20 Status: Ordered Results No data available for this section Immunizations No data available for this section Procedures Procedure Date Related Diagnosis Body Site Status Exodontia procedure Complete d Social History Social History Type Response Alcohol Current, Type Beer, Wine.1 Employment/School Status: Unemployed.2, 3 Smoking Status Current every day smoker; Ty pe: Cigarettes; Exposure to Tobacco Smoke Unable to obtain; Cigarette Smoking Last 365 Days Unable to obtain; Reg Smoking Cessation Counseling No4 entered on: 01/27/20 1few times a week, social [id number]. called 10/15/2018 states that she does not want medical information released to friend Duane rodriguez3Can release medical information to Mother- Chuyita Castro, Father- Andrew Abad. Friend- Dalia Carpenter, Friend-Piedad Lee4smokes everyday Assessment and Plan No data available for this section
--- OUTSIDE RECORDS SUMMARY | 2020-10-06 21:47 | XMS REPORT | Summary of Care ---
:1985 Author Organization [facility] Neurology [place] Address [address] [place] [address]- phone Encounter HQ Denisha_aida(FIN) [id number] Date(s): 07/26/20 - 07/26/20 [facility] [address] [place] [address]- [phone] Attending Physician: Tres Adkins MD Vital Signs [...] Reactions, Alerts No Known Medication Allergies Medications DULoxetine 60 mg oral delayed release capsule See Instructions, TAKE ONE CAPSULE BY MOUTH DAILY, # 30 unknown unit, 5 Refill(s), Pharmacy: [email or web address] [id number], 165.1, cm, 01/27/20 10:33:00 CDT, Height, 63.636, kg, 01/27/20 10:33:00 CDT, Weight Start Date: 07/08/20 Status: OrderedDULoxetine 60 mg oral delayed release capsule See Instructions, TAKE ONE CAPSULE BY MOUTH DAILY, # 30 unknown unit, 5 Refill(s), Pharmacy: [email or web address] [id number], 165.1, cm, 01/27/20 10:33:00 CDT, Height, 63.636, kg, 01/27/20 10:33:00 CDT, Weight Start Date: 07/08/20 Status: Orderedgabapentin 600 mg oral tablet See Instructions, TAKE ONE TABLET BY MOUTH THREE TIMES A DAY, # 90 tab, 1 Refill(s), Pharmacy: [facility] [id number], 165.1, cm, 01/27/20 10:33:00 CDT, Height, 63.636, kg, 01/27/20 10:33:00 CDT, Weight Start Date: 07/25/20 Status: Ordered Results No data available for [...] on: 01/27/20 1few times a week, social [id number]. called 10/15/2018 states that she does not want medical information released to friend Duane rodriguez3Can release medical information to Mother- Chuytia Castro, Father- Andrew Abad. Friend- Dalia Carpenter, Friend-Piedad Lee4smokes everyday Assessment and Plan No data available for this section
--- OUTSIDE RECORDS SUMMARY | 2020-10-06 21:47 | XMS REPORT | Continuity of Care Document ---
:1985 Author Organization [facility] Care Team Providers Name Role Phone [facility] Unavailable Un available Problems Problem Status Onset Classification Date Comments Sourc e Date Reported Chest pain (finding) Active Problem 09/21/2020 [facility] Depressive disorder Active Problem 09/21/2020 [facility] (disorder[facility] Dystonia (disorder) Active Problem 09/21/2020 [facility] Hyperlipidemia Active Problem 09/21/2020 [facility] (disorder) Neuro Muscle fasciculation Active Problem 09/21/2020 [facility] (finding) Neuro Neck pain (finding) Active Problem 09/21/2020 [facility] Palpitations Active Problem 09/21/2020 [facility] (finding) Neuro Paresthesia Active Problem 09/21/2020 [facility] (finding) Neuro Posttraumatic stress Active Problem 09/21/2020 [facility] disorder (disorder) Neuro Temporomandibular Active Problem 09/21/2020 [facility] [id number] Neuro on syndrome (disorder) Lumbar radiculopathy Active Problem 09/21/2020 [facility] (disorder) Neuro Sacroiliac joint Active Problem 09/21/2020 [facility] ham pain (finding) Neuro Cervicogenic Active Problem 09/21/2020 [facility] headache (finding) N euro Medications Medication Details Route Status Patient Ordering Order Source Instructions Provider Date Trihexyphenidyl 2 mg = 1 Active [facility] Hydrochloride 2 MG tab, PO, 020 Neur o Oral Tablet TID, # 90 tab, 3 Refill(s), Pharmacy: [facility] 149, 165.1, cm, 01/27/20 10:33:00 CDT, Height, 63.636, kg, 01/27/20 10:33:00 CDT, Weight gabapentin 600 MG See Active Mische r Oral Tablet Instructions 020 Neuro , TAKE ONE TABLET BY MOUTH THREE TIMES A DAY, # 90 tab, 1 Refill(s), Pharmacy: [facility] [id number], 165.1, cm, 01/27/20 10:33:00 CDT, Height, 63.636, kg, 01/27/20 10:33:00 CDT, Weight DULoxetine 60 mg See Active [facility] oral delayed Instructions 020 Neuro release capsule , TAKE ONE CAPSULE BY MOUTH DAILY, # 30 unknown unit, 5 Refill(s), Pharmacy: [facility] [id number], 165.1, cm, 01/27/20 10:33:00 CDT, Height, 63.636, kg, 01/27/20 10:33:00 CDT, Weight DULoxetine 60 mg = 1 cap, PO, Active Mi ham oral delayed Daily, # 30 020 Neuro release capsule cap, 2 Refill(s), Pharmacy: [facility] 808, 165.1, cm, 01/27/20 10:33:00 CDT, Height, 63.636, kg, 01/27/20 10:33:00 CDT, Weight DULoxetine 60 mg = 1 cap, PO, No Mi ham oral delayed Daily, # 15 Longer 020 Neuro release capsule ea, 2 Active Refill(s), Pharmacy: [facility]08, 165.1, cm, 01/27/20 10:33:00 CDT, Height, 63.636, kg, 01/27/20 10:33:00 CDT, Weight gabapentin 600 MG 600 mg = 1 Active Mis tato Oral Tablet tab, PO, 020 Neuro TID, # 90 tab, 2 Refill(s), Pharmacy: [facility]08, 165.1, cm, 01/27/20 10:33:00 CDT, Height, 63.636, kg, 01/27/20 10:33:00 CDT, Weight Trihexyphenidyl 2 mg = 1 Active [facility] Hydrochloride 2 MG tab, PO, 020 Neur o Oral Tablet TID, # 90 tab, 3 Refill(s), Pharmacy: [facility]08, 165.1, cm, 01/27/20 10:33:00 CDT, Height, 63.636, kg, 01/27/20 10:33:00 CDT, Weight DULoxetine 30 mg 60 mg = 2 No Misch er oral delayed cap, PO, Longer 020 Neuro release capsule Daily, # 60 Active cap, 3 Refill(s), Pharmacy: [facility] 808, 165.1, cm, 01/27/20 10:33:00 CDT, Height, 63.636, kg, 01/27/20 10:33:00 CDT, Weight tizanidine 4 MG 4 mg = 1 Active [facility] Oral Tablet tab, PO, 020 Neuro [Zanaflex] Bedtime, # 30 tab, 3 Refill(s), Pharmacy: [facility]08 DULoxetine 60 mg 60 mg = 1 Active Misch er oral delayed cap, PO, 020 Neuro release capsule Daily, # 30 cap, 3 Refill(s), Pharmacy: [facility] 808 duloxetine 30 MG 30 mg = 1 Active Misch er Enteric Coated cap, PO, 019 Neuro Capsule [Cymbalta] Daily, # 30 cap, 3 Refill(s), Pharmacy: [facility] 527 Trihexyphenidyl 2 mg = 1 Active [facility] Hydrochloride 2 MG tab, PO, 019 Neur o Oral Tablet TID, # 90 tab, 2 Refill(s), Pharmacy: [facility] 808 gabapentin 600 MG 600 mg = 1 Active Mis tato Oral Tablet tab, PO, 019 Neuro TID, # 90 tab, 2 Refill(s), Pharmacy: [facility]08 meloxicam 15 MG 15 mg = 1 Active Mische r Oral Tablet tab, PO, 019 Neuro [Mobic] Daily, # 30 tab, 3 Refill(s), Pharmacy: [facility]08 gabapentin 600 MG 600 mg = 1 Active Mis tato Oral Tablet tab, PO, 019 Neuro TID, # 90 tab, 2 Refill(s), Pharmacy: [facility]08 gabapentin 300 MG 300 mg = 1 No Mis tato Oral Capsule cap, PO, Longer 019 Neuro TID, X 30 Active day, # 90 cap, 2 Refill(s), Pharmacy: [facility]08 gabapentin 300 MG 300 mg = 1 Active Mis tato Oral Capsule cap, PO, 019 Neuro Bedtime, # 30 cap, 3 Refill(s), Pharmacy: [facility]08 Trihexyphenidyl 2 mg = 1 Active [facility] Hydrochloride 2 MG tab, PO, 019 Neur o Oral Tablet TID, # 90 tab, 2 Refill(s), Pharmacy: [facility]08 Methocarbamol 500 500 mg = 1 Active Mis tato MG Oral Tablet tab, PO, 019 Neuro [Robaxin] Q8H, PRN Spasms, X 20 day, # 60 tab, 0 Refill(s), Pharmacy: [facility]08 Trihexyphenidyl 2 mg = 1 Active [facility] Hydrochloride 2 MG tab, PO, 019 Neur o Oral Tablet BID, # 60 tab, 2 Refill(s), Pharmacy: [facility]08 Adderall 30 mg, PO, No [facility] Daily, 0 Longer 019 Neuro Refill(s) Active Paxil PO, Daily, 0 Active [facility] Refill(s) 019 Neuro Acetaminophen 500 650 mg, PO, Active Mi ham MG Oral Tablet BID, 0 019 Neuro [Tylenol] Refill(s) Ibuprofen 0 Refill(s) No [facility] Longer 019 Neuro Active Ibuprofen 200 MG 200 mg = 1 Active Misc her Oral Tablet tab, PO, 019 Neuro Daily, 0 Refill(s) Allergies, Adverse Reactions, Alerts Substance Category Reaction Severity Reaction Status Date Comments S ource type Reported No Known Assertion Drug Misch er Medication allergy Neuro Allergies Immunizations No Data Provided for This Section Results No Data Provided for This Section Pathology Reports No Data Provided for This Section Diagnostic Reports No Data Provided for This Section Consultation Notes No Data Provided for This Section Discharge Summaries No Data Provided for This Section History and Physicals No Data Provided for This Section Vital Signs Vital Sign Value Date Comments Source Systolic (mm Hg) 95 01/27/2020 [facility] [place] Diastolic (mm Hg) 79 01/27/2020 [facility] [place] Heart Rate 95 01/27/2020 [facility] [place] [facility] Respitory Rate 16 01/27/2020 [facility] [place] [facility] Height 165.1 cm 01/27/2020 [facility] Weight 63.636 01/27/2020 [facility] BMI Calculated 23.35 01/27/2020 [facility] Systolic (mm Hg) 109 10/29/2019 [facility] Diastolic (mm Hg) 85 10/29/2019 [facility] Heart Rate 89 10/29/2019 [facility] Respitory Rate 16 10/29/2019 [facility] Height 165.1 cm 10/29/2019 [facility] Weight 63.182 10/29/2019 [facility] BMI Calculated 23.18 10/29/2019 [facility] Systolic (mm Hg) 106 07/29/2019 [facility] Diastolic (mm Hg) 81 07/29/2019 [facility] Heart Rate 95 07/29/2019 [facility] Resp[facility] Rate 16 07/29/2019 [facility] Height 165.1 cm 07/29/2019 [facility] Weight 60.909 07/29/2019 [facility] BMI Calculated 22.35 07/29/2019 [facility] Systolic (mm Hg) 115 06/16/2019 [facility] Diastolic (mm Hg) 90 06/16/2019 [facility] Heart Rate 88 06/16/2019 [facility] Respitory Rate 16 06/16/2019 [facility] Height 165.1 cm 06/16/2019 [facility] Weight 60 06/16/2019 [facility] [place] Calculated 22.01 06/16/2019 [facility] Systolic (mm Hg) 110 05/15/2019 [facility] Diastolic (mm Hg) 81 05/15/2019 [facility] Heart Rate 78 05/15/2019 [facility] Respitory Rate 16 05/15/2019 [facility] Height 165.1 cm 05/15/2019 [facility] Weight 60 05/15/2019 [facility] BMI Calculated 22.01 05/15/2019 [facility] BMI Calculated 21.34 03/17/2019 [facility] Weight 58.182 03/17/2019 [facility] Height 165.1 cm 03/17/2019 [facility] Respitory Rate 16 03/17/2019 [facility] Heart Rate 80 03/17/2019 [facility] Systolic (mm Hg) 111 03/17/2019 [facility] ro Diastolic (mm Hg) 93 03/17/2019 [facility] Systolic (mm Hg) 118 10/08/2018 [facility] ro Diastolic (mm Hg) 93 10/08/2018 [facility] Heart Rate 92 10/08/2018 [facility] [place] Respitory Rate 16 10/08/2018 [facility] [place] [facility] Height 162.56 cm 10/08/2018 [facility] [place] [facility] Weight 59.091 10/08/2018 [facility] [place] [facility] BMI Calculated 22.36 10/08/2018 [facility] [place] Encounters Location Location Encounter Encounter Reason Attending ADM DC Stat us Source Details Type Number For Provider Date Date Visit Outpatient [id number] JENNIE 10/08 Active [facility] Outpatient [id number] Jennie 10/08 10/09 [facility] [place] [facility] [place] [id number] JENNIE 10/30 Active [facility] Outpatient [id number] Jennie 11/28 Active [facility] Outpatient [id number] Jennie 01/16 Active [facility] Ambulatory [id number] Jennie 01/16 01/16 [facility] [place] Outpatient [id number] Jennie 03/17 Active [facility] MNA Outpatient [id number] Jennie 03/17 03/18 [facility] [place] Out[facility] [id number] Jennie 04/29 Active [facility] MNA Ambulatory [id number] Jennie 04/29 04/29 [facility] Pre[facility] [place] Outpatient [id number] Jennie 05/15 Active [facility] MNA Outpatient [id number] Jennie 05/15 05/16 [facility] [place] Outpatient [id number] Jennie 06/16 Active [facility] Outpatient [id number] Jennie 06/16 06/17 [facility] [place] Out[facility] [id number] Jennie 07/29 Active [facility] MNA Outpatient [id number] Jennie 07/29 07/30 [facility] [place] [facility] [place] Out[place] [id number] Jennie 08/14 Active [facility] MNA Ambulatory [id number] Jennie 08/14 08/14 [facility] /2018 [facility] [place] Outpatient [id number] Jennie 10/29 [facility] Outpatient [id number] Jennie 10/29 10/30 [facility] /2019 [facility] [place] Outpatient [id number] Jennie 01/26 Active [facility] /2019 [facility] Outpatient [id number] Jennie 01/26 01/27 [facility] /2019 [facility] [place] Outpatient [id number] Jennie 05/19 Active [facility] [place] [facility] [id number] Jennie 05/19 Active [facility] Ambulatory [id number] Jennie 05/19 05/19 [facility] [place] /2019 [facility] [place] MNA Ambulatory [id number] Jennie 05/19 05/19 [facility] [place] /2019 [facility] [place] MNA Outside [id number] 06/09 06/11 [facility] /2019 Neuro [place] Records Outpatient [id number] Jennie 07/26 [facility] [facility] [id number] Jennie 07/26 07/26 [facility] [place] [place] Outpatient [id number] Jennie 09/19 [facility] [facility] Ambulatory [id number] Jennie 09/19 09/19 [facility] [place] /2020 [facility] [place] Procedures Procedure Code Date Perfomer Comments Source Exodontia [id number] [facility] [place] Assessment and Plan No Data Provided for This Section Plan of Care No Data Provided for This Section Social History Social History Date Source Social History TypeResponse 10/08/2018 [facility] Alcohol Current, Type Beer, Wine.1 Employment/School Status: Unemployed.2, 3 Smoking Status Current every day smoker; Type: Cigarett es; Exposure to Tobacco Smoke Unable to obtain; Cigarette Smoking Last 365 Days Unable to obtain; Reg Smoking Cessation Counseling No4 entered on: 01/27/20 1few times a week, social [id number]. ca lled 10/15/2018 states that she does not want medical information released to friend Duane rodriguez3Can release medical information to Mother- Chuyita Castro, Father- Andrew Abad. Friend- Dalia Carpenter, Friend-Piedad Lee4sm okes everyday Family History No Data Provided for This Section Advance Directives No Data Provided for This Section Functional Status No Data Provided for This Section
--- OUTSIDE RECORDS SUMMARY | 2020-10-06 21:47 | XMS REPORT | Continuity of Care Document ---
:1985 Author Organization [facility] t Address [address] [place] [address] Care Team Providers Name Role Phone Stefan Adkins Attending Clinician Gianna Guallpa DO Attending Clinician Doctor Unassigned, Name Attending Clinician Unavailable Edward Duque MD Attending Clinician Problems Condition Condition Condition Status Onset Resolution Last Treating Co mments Source Name Details Category Date Date Treatment Clinician Date Chest pain Problem Active 2020-09-21 M emoria (finding) 22:19:22 l Chest [facility] pain (finding) Active Problem 09/21/2020 [facility] Depressive Problem Active 2020-09-21 M emoria disorder 22:19:22 l (disorder) Arcenio n Depressive disorder (disorder) Active Problem 09/21/2020 [facility] Dystonia Problem Active 2020-09-21 Mem oria (disorder) 22:19:22 l Dystonia Arcen[facility] n (disorder) Active Problem 09/21/2020 [facility] Hyperlipid Problem Active 2020-09-21 M emoria emia 22:19:22 l (disorder) Arcen[place] n Hyperlipid emia (disorder) Active Problem 09/21/2020 [facility] Muscle Problem Active 2020-09-21 Memor ia fasciculat 22:19:22 l ion Muscle Dom (finding) fasciculat ion (finding) Active Problem 09/21/2020 [facility] Neck pain Problem Active 2020-09-21 Me moria (finding) 22:19:22 l Neck [facility] pain (finding) Active Problem 09/21/2020 [facility] Palpitatio Problem Active 2020-09-21 M emoria ns 22:19:22 l (finding) Dom Palpitatio ns (finding) Active Problem 09/21/2020 [facility] Paresthesi Problem Active 2020-09-21 M emoria a 22:19:22 l (finding) Dom Paresthesi a (finding) Active Problem 09/21/2020 [facility] Posttrauma Problem Active 2020-09-21 M emoria tic stress 22:19:22 l disorder [facility] (disorder) Posttrauma tic stress disorder (disorder) Active Problem 09/21/2020 [facility] Temporoman Problem Active 2020-09-21 M emoria dibular 22:19:22 l joint-pain Arcenio n -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) -dysfuncti on syndrome (disorder) Active Problem 09/21/2020 [facility] Lumbar Problem Active 2020-09-21 Memor ia radiculopa 22:19:22 l thy Lumbar [facility] (disorder) radiculopa thy (disorder) Active Problem 09/21/2020 [facility] Sacroiliac Problem Active 2020-09-21 M emoria joint pain 22:19:22 l (finding) Dom Sacroiliac joint pain (finding) Active Problem 09/21/2020 [facility] Cervicogen Problem Active 2020-09-21 M emoria ic 22:19:22 l headache Dom (finding) Cervicogen ic headache (finding) Active Problem 09/21/2020 [facility] Allergies, Adverse Reactions, Alerts Allergy Allergy Status Severity Reaction(s) Onset Inactive Treating Comm ents Source Name Type Date Date Clinician No Known No Known Active Memori a Medicati Medicati l on on Dom Powell s s Social History Social Habit Start Date Stop Date Quantity Comments Source Social History 2018-10-08 2018-10-08 Tacos benites 17:33:58 17:33:58 Medications Ordered Filled Start Stop Current Ordering Indication Dosage Frequency Signature Comments Components Source Medication Medication Date Date Medication? Clinician (SIG) Name Name Trihexyphen 2019-09 Yes 2 mg = 1 Me moria idyl 2-22 tab, PO, l Hydrochlori 19:23: TID, # 90 H ermann de 2 MG 00 tab, 3 Oral Tablet Refill(s), Pharmacy: [facility] 149, 165.1, cm, 01/27/20 10:33:00 CDT, Height, 63.636, kg, 01/27/20 10:33:00 CDT, Weight gabapentin 2019- Yes See Memoria 600 MG Oral 1-16 Instructio l Tablet 22:13: ns, TAKE [facility] 00 ONE TABLET BY MOUTH THREE TIMES A DAY, # 90 tab, 1 Refill(s), Pharmacy: [facility] [id number], 165.1, cm, 01/27/20 10:33:00 CDT, Height, 63.636, kg, 01/27/20 10:33:00 CDT, Weight DULoxetine 2019- Yes See Memoria 60 mg oral 0-30 Instructio l delayed 21:19: ns, TAKE Arcenio n release 00 ONE capsule CAPSULE BY MOUTH DAILY, # 30 unknown unit, 5 Refill(s), Pharmacy: [facility] [id number], 165.1, cm, 01/27/20 10:33:00 CDT, Height, 63.636, kg, 01/27/20 10:33:00 CDT, Weight DULoxetine 2020-0 Yes = 1 cap, Mem oria 60 mg oral 8-26 PO, Daily, l delayed 21:09: # 30 cap, Isabella nn release 00 2 capsule Refill(s), Pharmacy: [facility] 808, 165.1, cm, 01/27/20 10:33:00 CDT, Height, 63.636, kg, 01/27/20 10:33:00 CDT, Weight DULoxetine 2020-0 No = 1 cap, Mem oria 60 mg oral 8-14 PO, Daily, l delayed 16:21: # 15 ea, 2 Herm zoe release 00 Refill(s), capsule Pharmacy: [facility] 808, 165.1, cm, 01/27/20 10:33:00 CDT, Height, 63.636, kg, 01/27/20 10:33:00 CDT, Weight gabapentin 2020- Yes 600 mg = 1 M emoria 600 MG Oral 7-24 tab, PO, l Tablet 18:42: TID, # 90 Arcenio n 00 tab, 2 Refill(s), Pharmacy: [facility] 808, 165.1, cm, 01/27/20 10:33:00 CDT, Height, 63.636, kg, 01/27/20 10:33:00 CDT, Weight Trihexyphen 2019-0 Yes 2 mg = 1 Me moria idyl 7-24 tab, PO, l Hydrochlori 18:41: TID, # 90 H ermann de 2 MG 00 tab, 3 Oral Tablet Refill(s), Pharmacy: [facility] 808, 165.1, cm, 01/27/20 10:33:00 CDT, Height, 63.636, kg, 01/27/20 10:33:00 CDT, Weight DULoxetine 2019-0 No 60 mg = 2 Me moria 30 mg oral 7-09 cap, PO, l delayed 21:16: Daily, # Arcenio n release 00 60 cap, 3 capsule Refill(s), Pharmacy: [facility] 808, 165.1, cm, 01/27/20 10:33:00 CDT, Height, 63.636, kg, 01/27/20 10:33:00 CDT, Weight tizanidine 2019-0 Yes 4 mg = 1 Mem oria 4 MG Oral 5-20 tab, PO, l Tablet 16:00: Bedtime, # Isabella nn [Zanaflex] 00 30 tab, 3 Refill(s), Pharmacy: [facility] 808 DULoxetine 2019-0 Yes 60 mg = 1 Me moria 60 mg oral 2-20 cap, PO, l delayed 17:39: Daily, # Arcenio n release 00 30 cap, 3 capsule Refill(s), Pharmacy: [facility] 808 duloxetine 2018- Yes 30 mg = 1 Me moria 30 MG 1-20 cap, PO, l Enteric 17:03: Daily, # Arcenio n Coated 00 30 cap, 3 Capsule Refill(s), [Cymbalta] Pharmacy: [facility] 527 Trihexyphen 2018- Yes 2 mg = 1 Me moria idyl 0-08 tab, PO, l Hydrochlori 20:33: TID, # 90 H ermann de 2 MG 55 tab, 2 Oral Tablet Refill(s), Pharmacy: [facility] gabapentin 2018-09 Yes 600 mg = 1 M emoria 600 MG Oral 0-08 tab, PO, l Tablet 20:33: TID, # 90 Arcenio n 53 tab, 2 Refill(s), Pharmacy: [facility] meloxicam 2018-09 Yes 15 mg = 1 Mem oria 15 MG Oral 0-08 tab, PO, l Tablet 20:33: Daily, # [facility] [Mobic] 00 30 tab, 3 Refill(s), Pharmacy: [facility] gabapentin Yes 600 mg = 1 M emoria 600 MG Oral 7-19 tab, PO, l Tablet 22:57: TID, # 90 Arcenio n 00 tab, 2 Refill(s), Pharmacy: [facility] gabapentin No 300 mg = 1 M emoria 300 MG Oral 7-13 cap, PO, l Capsule 00:31: TID, X 30 Isabella nn 49 day, # 90 cap, 2 Refill(s), Pharmacy: [facility] gabapentin Yes 300 mg = 1 M emoria 300 MG Oral 7-09 cap, PO, l Capsule 21:06: Bedtime, # Herm zoe 36 30 cap, 3 Refill(s), Pharmacy: [facility] Trihexyphen Yes 2 mg = 1 Me moria idyl 7-09 tab, PO, l Hydrochlori 21:06: TID, # 90 H ermann de 2 MG 33 tab, 2 Oral Tablet Refill(s), Pharmacy: [facility] Methocarbam Yes 500 mg = 1 Memoria ol 500 MG 7-09 tab, PO, l Oral Tablet 21:06: Q8H, PRN He rmann [Robaxin] 00 Spasms, X 20 day, # 60 tab, 0 Refill(s), Pharmacy: [facility] Trihexyphen Yes 2 mg = 1 Me moria idyl 4-10 tab, PO, l Hydrochlori 18:54: BID, # 60 H ermann de 2 MG 00 tab, 2 Oral Tablet Refill(s), Pharmacy: [facility] Adderall No 30 mg, PO, Mem oria 1-30 Daily, 0 l 17:21: Refill(s) [facility] 00 Paxil 0 Yes PO, Daily, Memori a 1-30 0 l 17:21: Refill(s) Dom 00 Acetaminoph 2018- Yes 650 mg, Mem oria en 500 MG 1-30 PO, BID, 0 l Oral Tablet 17:21: Refill(s) H ermann [Tylenol] Ibuprofen No 0 Memoria 1-30 Refill(s) l 17:21: Dom 00 Ibuprofen Yes 200 mg = 1 Me moria 200 MG Oral 1-30 tab, PO, l Tablet 17:21: Daily, 0 Dom 00 Refill(s) Vital Signs Vital Name Observation Time Observation Value Comments Source Systolic (mm Hg) 2020-01-27 15:33:00 Mohan rial [facility] Diastolic (mm Hg) 2020-01-27 15:33:00 Mem orial Dom Heart Rate 2020-01-27 15:33:00 [facility] Respitory Rate 2020-01-27 15:33:00 Memori al [facility] Height 2020-01-27 15:33:00 165.1 cm [facility] Weight 2020-01-27 15:33:00 [facility] BMI Calculated 2020-01-27 15:33:00 Memori al [facility] Systolic (mm Hg) 2019-10-29 16:41:00 Mohan rial [facility] Diastolic (mm Hg) 2019-10-29 16:41:00 Mem orial [facility] Heart Rate 2019-10-29 16:41:00 [facility] Dom Respitory Rate 2019-10-29 16:41:00 Memori al [facility] Height 2019-10-29 16:41:00 165.1 cm [facility] Weight 2019-10-29 16:41:00 [facility] BMI Calculated 2019-10-29 16:41:00 Memori al Dom Systolic (mm Hg) 2019-07-29 16:23:00 Mohan rial Dom Diastolic (mm Hg) 2019-07-29 16:23:00 Mem orial Dom Heart Rate 2019-07-29 16:23:00 [facility] Dom Respitory Rate 2019-07-29 16:23:00 Memori al [facility] Height 2019-07-29 16:23:00 165.1 cm [facility] Weight 2019-07-29 16:23:00 [facility] Dom BMI Calculated 2019-07-29 16:23:00 Memori al Dom Systolic (mm Hg) 2019-06-16 19:51:00 Mohan rial Dom Diastolic (mm Hg) 2019-06-16 19:51:00 Mem orial [facility] Heart Rate 2019-06-16 19:51:00 [facility] Dom Respitory Rate 2019-06-16 19:51:00 Memori al Dom Height 2019-06-16 19:51:00 165.1 cm [facility] Dom Weight 2019-06-16 19:51:00 [facility] BMI Calculated 2019-06-16 19:51:00 Memori al Dom Systolic (mm Hg) 2019-05-15 16:11:00 Mohan rial [facility] Diastolic (mm Hg) 2019-05-15 16:11:00 Mem orial [facility] Heart Rate 2019-05-15 16:11:00 [facility] Respitory Rate 2019-05-15 16:11:00 Memori al Dom Height 2019-05-15 16:11:00 165.1 cm [facility] Weight 2019-05-15 16:11:00 [facility] BMI Calculated 2019-05-15 16:11:00 Memori al Dom BMI Calculated 2019-03-17 20:26:00 Memori al [facility] Weight 2019-03-17 20:26:00 [facility] Height 2019-03-17 20:26:00 165.1 cm [facility] Dom Respitory Rate 2019-03-17 20:26:00 Memori al Dom Heart Rate 2019-03-17 20:26:00 [facility] Systolic (mm Hg) 2019-03-17 20:26:00 Mohan rial [facility] Diastolic (mm Hg) 2019-03-17 20:26:00 Mem orial [facility] Systolic (mm Hg) 2018-10-08 17:18:00 Mohan rial [facility] Diastolic (mm Hg) 2018-10-08 17:18:00 Mem orial [facility] Heart Rate 2018-10-08 17:18:00 [facility] Respitory Rate 2018-10-08 17:18:00 Memori al Dom Height 2018-10-08 17:18:00 162.56 cm [facility] Weight 2018-10-08 17:18:00 Tacos Fernandes BMI Calculated 2018-10-08 17:18:00 Keisha Tate Procedures Procedure Date / Time Performed Performing Clinician Estephanie parra Exodontia procedure Tacos fox Encounters Start End Encounter Admission Attending Care Care Encounter Source Date/Time Date/Time Type Type Clinicians Facility Department ID 2020-09-19 2020-09-19 Outpatient Jed, MHMISCHER MHMISCHER [id number] 09:45:00 09:45:00 Tres 15 Stefan 2020-07-26 2020-07-26 Outpatient Jed, MHMISCHER MHMISCHER [id number] 15:45:00 15:45:00 Tres 14 Stefan 2020-06-09 2020-06-10 Outpatient MHMISCHER MHMISCHER [id number] 08:26:07 23:59:59 00 2020-05-19 2020-05-19 Outpatient Jed, MHMISCHER MHMISCHER [id number] 10:00:00 10:00:00 Tres 12 Stefan 2020-05-19 2020-05-19 Outpatient Jed, MHMISCHER MHMISCHER [id number] 10:00:00 10:00:00 Tres 13 Stefan 2020-05-06 2020-05-06 Emergency [facility] [id number] 15:02:00 16:39:00 Cassie Galeas [id number] [place] [id number] [place] [id number] 2020-05-06 2020-05-06 Orders Doctor QUIROZ [id number] 00:00:00 00:00:00 Only Unassigned, [place] [id number] [place] [facility] [id number] 2020-04-25 2020-04-25 [facility] [id number] 12:20:00 17:02:00 Richard Galeas [id number] [place] [id number] [place] [id number] 2020-01-27 2020-01-27 Outpatient Jed, MHMISCHER MHMISCHER [id number] 10:15:00 23:59:59 Tres 11 Stefan 2019-10-29 2019-10-29 Outpatient Jed, MHMISCHER MHMISCHER [id number] 10:30:00 23:59:59 Tres 10 Stefan 2019-08-14 2019-08-14 Outpatient Jed, MHMISCHER MHMISCHER [id number] 11:30:00 11:30:00 Tres 07 Stefan 2019-07-29 2019-07-29 Outpatient Jde, MHMISCHER MHMISCHER [id number] 10:15:00 23:59:59 Tres Stefan 2019-06-16 2019-06-16 Outpatient Jed, MHMISCHER MHMISCHER [id number] 14:45:00 23:59:59 Tres 08 Stefan 2019-05-15 2019-05-15 Outpatient Jed, MHMISCHER MHMISCHER [id number] 11:00:00 23:59:59 Tres Stefan 2019-04-29 2019-04-29 Outpatient Jed, MHMISCHER MHMISCHER [id number] 15:00:00 15:00:00 Tres 05 Stefan 2019-03-17 2019-03-17 Outpatient Jed, MHMISCHER MHMISCHER [id number] 15:00:00 23:59:59 Tres 04 Stefan 2019-01-16 2019-01-16 Outpatient Jed, MHMISCHER MHMISCHER [id number] 10:45:00 10:45:00 Tres 03 Stefan 2018-10-08 2018-10-08 Outpatient Jed, MHMISCHER MHMISCHER [id number] 11:00:00 23:59:59 Tres 00 Stefan Results This patient has no known results.
--- NOTE | 2020-10-06 23:44 | ER ---
Nurse's Notes [facility] Name: Fela Martin Age: 35 yrs Sex: Female : 1985 Arrival Date: 10/06/2020 Time: 21:47 Bed 30 Private MD: Diagnosis: Cervical disc disorder with radiculopathy Presentation: 10/06 21:58 Chief complaint: Patient states: I am having neck pain x 1 week. It started Saturday ca1 0100, it went on til 0800 in the morning, at that time, the pain radiates to the L arm that is heavy, numb and painful. Tingling at the back of my spine on the L side to the edge of the top of the shoulder. It has gotten worse each day and has been going on all day today and progressively worse today. Denies injury to the neck. Had MRI months ago, July 2020, showed herniated disc on my Cervical spine. Denies fever. Coronavirus screen: Client denies travel out of the [place] in the last 14 days. At this time, the client does not indicate any symptoms associated with coronavirus-19. Ebola Screen: Patient negative for fever greater than or equal to 101.5 degrees Fahrenheit, and additional compatible Ebola Virus Disease symptoms Patient denies exposure to infectious person. Patient denies travel to an Ebola-affected area in the 21 days before illness onset. No symptoms or risks identified at this time. Initial Sepsis Screen: Does the patient meet any 2 criteria? No. Patient's initial sepsis screen is negative. Does the patient have a suspected source of infection? No. Patient's initial sepsis screen is negative. Risk Assessment: Do you want to hurt yourself or someone else? Patient reports no desire to harm self or others. Onset of symptoms was October 06, 2020. 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 - Social history:: Smoking status: Patient reports the use of cigarette tobacco products, denies chronic smoking, but will smoke occasionally. - Family history:: not pertinent. - Hospitalizations: : No recent hospitalization is reported. Screenin:23 Abuse screen: Denies threats or abuse. Nutritional screening: No deficits noted. ea Tuberculosis screening: No symptoms or risk factors identified. Fall Risk None identified. Vital Signs: 21:58 BP 119 / 73; Pulse 91; Resp 16 S; Temp 97.8(TE); Pulse Ox 100% on R/A; Weight 68.04 kg ca1 (R); Height 5 ft. 5 in. (165.10 cm) (R); Pain 9/10; 21:58 Body Mass Index 24.96 (68.04 kg, 165.10 cm) ca1 ED Course: 21:47 Patient arrived in ED. ag3 22:04 Triage completed. ca1 22:05 Arm band placed on right wrist. ca1 23:13 Perez Arnett MD is Attending Physician. rn 23:23 Patient has correct armband on for positive identification. Bed in low position. Call ea light in reach. Side rails up X 1. 23:40 Vandana Alex, RN is Primary Nurse. dm5 Administered Medications: 23:48 Drug: Decadron 10 mg Route: IM; Site: right gluteus; dm5 Outcome: 23:43 Discharge ordered by . rn 10/07 00:15 Patient left the ED. dm5 Signatures: Vandana Alex, RN RN dmPerez Centeno MD MD rn Antunez, Elena, RN RN ea Gomez, Alice ag3 Christine Wolf RN RN ca1
--- NOTE | 2020-10-06 23:44 | EDPHYS ---
Physician Documentation [facility] Name: Fela Martin Age: 35 yrs Sex: Female : 1985 Arrival Date: 10/06/2020 Time: 21:47 Bed 30 Private MD: ED Physician Perez Arnett HPI: 10/06 23:36 This 35 yrs old Female presents to ER via Ambulatory with complaints of Neck rn Pain, >24Hrs Old. 23:36 The patient or guardian complains of pain, that is chronic. The symptoms are located at rn the C1, C2, C3, C4, C5, C6 and C7. Onset: The symptoms/episode began/occurred 2 year(s) ago. Associated signs and symptoms: Pertinent positives: Paresthesias tingling, Pertinent negatives: fever, headache, weakness. The pain radiates to the left arm. Modifying factors: The symptoms are alleviated by nothing. the symptoms are aggravated by nothing. Severity of symptoms: At their worst the symptoms were moderate, in the emergency department the symptoms are unchanged. The patient has experienced similar episodes in the past, chronically. The patient has been recently seen by a physician:. Reports chronic neck problems, had MRI last year that showed multi-level disc herniations and nerve root problems, having worsening of pain and achiness down left arm, no trauma/fever/weakness. Evaluated by ortho recently as well as neurology, no plans for surgery. Improves with motrin. . 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 - Social history:: Smoking status: Patient reports the use of cigarette tobacco products, denies chronic smoking, but will smoke occasionally. - Family history:: not pertinent. - Hospitalizations: : No recent hospitalization is reported. ROS: 23:36 Constitutional: Negative for fever, chills, and weight loss, Eyes: Negative for injury, rn pain, redness, and discharge, Neck: Negative for pain Cardiovascular: Negative for chest pain, palpitations, and edema, Respiratory: Negative for shortness of breath, cough, wheezing, and pleuritic chest pain, Abdomen/GI: Negative for abdominal pain, nausea, vomiting, diarrhea, and constipation, MS/Extremity: Negative for injury and deformity, Skin: Negative for injury, rash, and discoloration, Neuro: Negative for headache, weakness, and seizure. Exam: 23:36 Constitutional: This is a well developed, well nourished patient who is awake, alert, rn and in no acute distress. Neck: No focal midline tenderness, no swelling, no crepitus Skin: Warm, dry with normal turgor. Normal color with no rashes, no lesions, and no evidence of cellulitis. MS/ Extremity: Pulses equal, no cyanosis. Neurovascular intact. Full, normal range of motion. Equal circumference. Neuro: Awake and alert, GCS 15, oriented to person, place, time, and situation. Cranial nerves II-XII grossly intact. Motor strength 5/5 in all extremities. Sensory grossly intact. Cerebellar exam normal. Vital Signs: 21:58 BP 119 / 73; Pulse 91; Resp 16 S; Temp 97.8(TE); Pulse Ox 100% on R/A; Weight 68.04 kg ca1 (R); Height 5 ft. 5 in. (165.10 cm) (R); Pain 9/10; 21:58 Body Mass Index 24.96 (68.04 kg, 165.10 cm) ca1 MDM: 23:13 Patient medically screened. rn 23:36 Differential diagnosis: Cervical Disc Herniation Cervical Discogenic Pain Cervical rn Raiculopathy torticollis. Data reviewed: vital signs, nurses notes, old medical records, and as a result, I will discharge patient. Counseling: I had a detailed discussion with the patient and/or guardian regarding: the historical points, exam findings, and any diagnostic results supporting the discharge/admit diagnosis, the need for outpatient follow up, to return to the emergency department if symptoms worsen or persist or if there are any questions or concerns that arise at home. Special discussion: I discussed with the patient/guardian in detail that at this point there is no indication for admission to the hospital. It is understood, however, that if the symptoms persist or worsen the patient needs to return immediately for re-evaluation. Based on the history and exam findings, there is no indication for further emergent testing or inpatient evaluation. I discussed with the patient/guardian the need to see the back specialist for further evaluation of the symptoms. I discussed with the patient/guardian the need to see the neurologist for further evaluation of the symptoms. I discussed with the patient/guardian the need to see the orthopedic surgeon for further evaluation of the symptoms. ED course: Pt with MRi results/read here, reviewed. . Administered Medications: 23:48 Drug: Decadron 10 mg Route: IM; Site: right gluteus; dm5 Disposition: 10/06/20 23:43 Discharged to Home. Impression: Cervical disc disorder with radiculopathy. - Condition is Stable. - Discharge Instructions: Cervical Radiculopathy, Herniated Disk. - Prescriptions for Medrol (Durga) 4 mg Oral Tablets, Dose Pack - take 1 tablet by ORAL route as directed - follow package instructions; 1 packet. gabapentin 600 mg Oral tablet - take 1 tablet by ORAL route 3 times per day; 90 tablet. - Medication Reconciliation Form, Thank You Letter, Antibiotic Education, Prescription Opioid Use form. - Follow up: Private Physician; When: As needed; Reason: Recheck today's complaints, Re-evaluation by your physician. - Problem is chronic. - Symptoms are unchanged. Signatures: Vandana Alex RN RN dm5 Perez Arnett MD MD rn Acob, J LUIS King RN ca1 Corrections: (The following items were deleted from the chart) 10/07 00:15 10/06 23:43 10/06/2020 23:43 Discharged to Home. Impression: Cervical disc disorder dm5 with radiculopathy. Condition is Stable. Forms are Medication Reconciliation Form, Thank You Letter, Antibiotic Education, Prescription Opioid Use. Follow up: Private Physician; When: As needed; Reason: Recheck today's complaints, Re-evaluation by your physician. Problem is chronic. Symptoms are unchanged. rn
[2020-10-06] MEDS ORDERED: dexAMETHasone 10 MG/ML VIAL ONE (23:58)
[2020-10-07 01:14] VITALS: BP 119/73; TEMP 97.8; O2SAT 100
== END 2020-10-07 00:15 | disposition home or self-care (01) ==
LOC: ER 21:44
DX: M50.10 Cervical disc disorder with radiculopathy, unspecified cervical region (principal); F17.210 Nicotine dependence, cigarettes, uncomplicated
CPT/HCPCS: 96372; 99282; J1100